=== PATIENT | female | born 1960 | race Caucasian/White ===

== ENCOUNTER 2023-02-14 07:44 | Outpatient (OUT) | payer OTHER, SELFPAY ==
--- NOTE | 2023-02-14 07:52 | US_ITS ---
The [address] [address] Patient Name: SAIDA HERNANDEZ MRN: [id number] date: 1960 Sex: F Assigned Patient Location: US Current Patient Location: US Accession/Order Number: [id number] Exam Date: 02/14/2023 08:00 Report Date: 02/14/2023 09:07 At the request of: MADAN GARCIA Procedure: US thyroid EXAM: Thyroid ultrasound CLINICAL INDICATION: Thyroiditis. COMPARISON: None TECHNIQUE: US of the thyroid gland was performed using a small parts transducer. Color flow vascular imaging was also done FINDINGS: Right lobe of the thyroid gland measures 6.1 cm in greatest length. Echogenicity and vascularity within the right lobe is normal. Solid hyperechoic superior thyroid nodule measures 3.0 x 1.7 x 3.0 cm. Solid hyperechoic mid thyroid 2.3 x 2.2 x 2.1 cm nodule. Solid hyperechoic inferior thyroid 2.7 x 1.9 x 2.9 cm nodule. Left lobe of the thyroid gland measures 4.0 cm in greatest length. Echogenicity and vascularity is normal Solid hypoechoic inferior thyroid 0.7 x 0.6 x 0.5 cm nodule. The isthmus measures 4 mm in the midline. Echogenicity within the isthmus is normal. Isoechoic solid 0.5 x 0.2 x 0.5 cm nodule. IMPRESSION: Superior and inferior right thyroid nodules meeting criteria for ultrasound guided FNA. Electronically authenticated by: MILLIE BURDEN Date: 02/14/2023 09:07
== END 2023-02-14 07:45 | disposition home or self-care (01) ==
LOC: US 07:47
PROVIDERS: PCP Family Medicine; Visit Provider Family Medicine
DX: E06.9 Thyroiditis, unspecified (principal)
CPT/HCPCS: 76536